=== PATIENT | female | born 1975 | race Caucasian/White ===

== ENCOUNTER → 2016-09-14 | Outpatient (CLI) | payer MEDICAID, OTHER ==
--- NOTE | 2016-09-14 14:37 | US ---
Ultrasound Obstetrics, First Trimester Clinical indication: Follow up ultrasound from one week prior. Continuous bleeding. Comparison: September 07, 2016. Findings: The uterus is unremarkable. Multiple fibroids are noted. The endometrial stripe measures 10 mm. There is no evidence of an IUP on today's examination. There is no evidence of retained products of conception. Multiple fibroids are again noted, with the largest being 3.2 x 2.1 x 2.3 cm. Right ovary measures 3.2 x 2.5 x 2.4 cm with normal color and Doppler flow and resistive index of 0.6 6. Left ovary measures 2.7 x 2.5 x 2.4 cm with normal color and Doppler flow and resistive index of 0.67 . Impression: Spontaneous . No evidence of IUP on today's examination. No evidence of residual retained products of conception. Critical results relayed by Dr. Vargas to Dr. Auguste today at 1422 hours.
== END ==
LOC: FIMAGING 13:18
PROVIDERS: ATTEND Advanced Practice Midwife
DX: O03.9 Complete or unspecified spontaneous abortion without complication (principal)